=== PATIENT | male | born 1955 | race Caucasian/White ===

== ENCOUNTER 2017-10-18 09:50 | Day surgery (SDC) | END 2017-10-18 17:51 | disposition home or self-care (01) ==

== ENCOUNTER 2018-12-22 13:18 | Emergency (ER) | payer OTHER ==
[~2018-12-22] VITALS: Ht 180.3 cm; Wt 73.0 kg
[~2018-12-22 13:18] MED LIST: FAMO-96 PO; FEXO180T61 PO; PRED20TA PO
[2018-12-22 13:23] VITALS: BP 134/77; PULSE 82; RESP 18; Ht 180.3 cm; Wt 73.0 kg
[2018-12-22] MEDS ORDERED: DEXAMETHASONE 10 MG/ML 1 ML INJ IM ONE (14:00)
[2018-12-22] MEDS ORDERED: DIPHENHYDRAMINE 50 MG INJ IM ONE (14:00)
== END 2018-12-22 13:46 | disposition home or self-care (01) ==
LOC: FTE 13:18
DX: R21 Rash and other nonspecific skin eruption (principal); Z87.891 Personal history of nicotine dependence
CPT/HCPCS: 96372; J1100; J1200; Z7502